=== PATIENT | female | born 1960 | race Caucasian/White ===

== ENCOUNTER 2022-02-22 19:06 | Observation (INO) | payer MEDICARE, SELFPAY ==
[2022-02-22 20:28] LABS: #Basophils 0.1 thou/uL (0.0-0.2); #Eosinphils 0.2 thou/uL (0.0-0.7); #Monocytes 0.7 thou/uL (0.11-0.59); #Neutrophils 5.3 thou/uL (1.40-6.50); %Basophils 0.7 % (0.0-1.0); %Lymphocytes 32.5 % (21.0-51.0); %Monocytes 7.6 % (0.0-10.0); %Neutrophils 57.3 % (42.0-75.0); Hemoglobin 13.7 g/dL (12.0-16.0); Mean Corpuscular HGB CONC 32.1 g/dL (32.0-36.0); Mean Corpuscular Hemoglobin 29.1 pg (27.0-31.0); Mean Corpuscular Volume 90.7 fL (78.0-98.0); Mean Platelet Volume 7.6 fL (7.4-10.4); Platelet Count 348 thou/uL (130-400); Red Blood Cell (RBC) Count 4.71 mill/uL (4.20-5.40); White Blood Cell (WBC) Count 9.3 thou/uL (4.8-10.8)
[2022-02-22] MEDS ORDERED: Labetalol HCl 100 MG/20 ML VIAL ONE (20:29)
[2022-02-22] MEDS ORDERED: Acetaminophen 325 MG TAB ONE (20:31)
[2022-02-22 21:13] LABS: ALT (SGPT) 12 U/L (8-55); AST (SGOT) 17 U/L (5-34); Albumin 4.1 g/dL (3.4-4.8); Alkaline Phosphatase 121 U/L (40-110); Anion Gap 15 mmol/L (10-20); BUN (Urea Nitrogen) 16 mg/dL (9.8-20.1); Bilirubin, Total 0.4 mg/dL (0.2-1.2); Calc. Creatinine Clearance 0 mL/min (70-130); Calcium 9.5 mg/dL (7.8-10.44); Carbon Dioxide 22 mmol/L (23-31); Chloride 104 mmol/L (98-107); Estimated GFR 89; Globulin 3.6 g/dL (2.4-3.5); Glucose 96 mg/dL (80-115); Potassium 3.9 mmol/L (3.5-5.1); Protein, Total 7.7 g/dL (5.8-8.1); Sodium 137 mmol/L (136-145)
[2022-02-22] MEDS ORDERED: Aspirin 325 MG TAB ONE (22:35)
[2022-02-22] MEDS ORDERED: rOPINIRole HCl 2 MG TAB PO SCH (23:00)
[2022-02-23] MEDS ORDERED: Gabapentin 300 MG CAP PO SCH ×2 (01:00→15:00)
[2022-02-23] MEDS ORDERED: rOPINIRole HCl 2 MG TAB PO SCH ×2 (01:00→15:00)
[2022-02-23 01:13] VITALS: BMI 32.6
[2022-02-23] MEDS ORDERED: Ondansetron PF 4 MG/2 ML Vial IVP PRN (03:16)
[2022-02-23] MEDS ORDERED: Acetaminophen 325 MG TAB PO PRN (03:16)
[2022-02-23] MEDS ORDERED: hydrALAZINE 20 MG/ML VIAL SLOW IVP PRN (03:44)
[2022-02-23 05:54] LABS: #Basophils 0.1 thou/uL (0.0-0.2); #Eosinphils 0.2 thou/uL (0.0-0.7); #Lymphocytes 3.1 thou/uL (1.20-3.40); #Monocytes 0.5 thou/uL (0.11-0.59); #Neutrophils 3.7 thou/uL (1.40-6.50); %Basophils 1.4 % (0.0-1.0); %Eosinophils 2.6 % (0.0-10.0); %Lymphocytes 40.9 % (21.0-51.0); %Monocytes 6.4 % (0.0-10.0); %Neutrophils 48.8 % (42.0-75.0); Hemoglobin 14.2 g/dL (12.0-16.0); Mean Corpuscular HGB CONC 31.7 g/dL (32.0-36.0); Mean Corpuscular Volume 91.4 fL (78.0-98.0); Mean Platelet Volume 7.7 fL (7.4-10.4); Platelet Count 329 thou/uL (130-400); Red Blood Cell (RBC) Count 4.91 mill/uL (4.20-5.40); White Blood Cell (WBC) Count 7.5 thou/uL (4.8-10.8)
[2022-02-23 06:13] LABS: Chloride 103 mmol/L (98-107); Potassium 3.2 mmol/L (3.5-5.1); Sodium 138 mmol/L (136-145)
[2022-02-23 06:14] LABS: Glucose 148 mg/dL (80-115)
[2022-02-23 06:15] LABS: Triglycerides 321 mg/dL (Less than 150)
[2022-02-23 06:16] LABS: Anion Gap 14 mmol/L (10-20); Carbon Dioxide 24 mmol/L (23-31)
[2022-02-23 06:18] LABS: BUN (Urea Nitrogen) 13 mg/dL (9.8-20.1); Calc. Creatinine Clearance 127 mL/min (70-130); Estimated GFR 94
[2022-02-23 06:20] LABS: Cardiac Risk 6.1 (Less than 4.5); Cholesterol 202 mg/dl (< 200 Desired); HDL Cholesterol 33 mg/dL (>60 Neg Risk); LDL Cholesterol, Calculated 105 mg/dL
[2022-02-23 06:30] LABS: Troponin I Less than 0.010 ng/mL (< 0.028)
[2022-02-23] MEDS ORDERED: Amlodipine 10 MG TAB PO SCH (09:00)
[2022-02-23] MEDS ORDERED: Aspirin Chewable 81 MG TAB PO SCH (09:00)
[2022-02-23] MEDS ORDERED: Enoxaparin Sodium 40 MG/0.4 ML SYRINGE SC SCH (09:00)
[2022-02-23 09:14] LABS: Troponin I Less than 0.010 ng/mL (< 0.028)
[2022-02-23] MEDS ORDERED: Lorazepam 1 MG TAB PO PRN (12:00)
[2022-02-23] MEDS ORDERED: HYDROcodone/Acetaminophen 10/325 mg Tablet PO PRN (12:27)
[2022-02-23 17:51] VITALS: BP 138/70; TEMP 98.9
[2022-02-23] MEDS ORDERED: Atorvastatin Calcium 40 MG TAB PO SCH (21:00)
[2022-02-23] MEDS ORDERED: tiZANidine HCl 4 MG TAB PO SCH (21:00)
[2022-02-24] MEDS ORDERED: DULoxetine 30 MG CAP PO SCH (09:00)
== END 2022-02-23 19:36 | disposition home or self-care (01) ==
LOC: ERS 19:06 → NEURO 22:30
PROVIDERS: ADMIT Internal Medicine; ATTEND Internal Medicine
DX: I16.0 Hypertensive urgency (principal); I10 Essential (primary) hypertension; R53.1 Weakness; G89.29 Other chronic pain; M54.50 Low back pain, unspecified; G25.81 Restless legs syndrome; E78.5 Hyperlipidemia, unspecified; E66.9 Obesity, unspecified; Z68.32 Body mass index [BMI] 32.0-32.9, adult; Z91.14 Patient's other noncompliance with medication regimen; Z79.899 Other long term (current) drug therapy; Z20.822 Contact with and (suspected) exposure to COVID-19
CPT/HCPCS: 70450; 80048; 80053; 80061; 83036; 84484 ×3; 85025 ×2; 93005; 96372; 96375; G0378 ×3; U0003; U0005; 36415; 96374; J1650; J2405

== ENCOUNTER 2022-03-03 10:41 | Outpatient (CLI) | payer MEDICARE | END 2022-03-03 10:42 | disposition home or self-care (01) | LOC: TBSIIMAG 10:41 | PROVIDERS: ATTEND Neurological Surgery | DX: M25.561 Pain in right knee (principal); M25.562 Pain in left knee ==

== ENCOUNTER 2022-06-13 21:14 | Emergency (ER) | payer MEDICARE ==
[2022-06-13 23:40] LABS: #Basophils 0.1 thou/uL (0.0-0.2); #Eosinphils 0.1 thou/uL (0.0-0.7); #Lymphocytes 3.5 thou/uL (1.20-3.40); #Monocytes 0.6 thou/uL (0.11-0.59); #Neutrophils 6.8 thou/uL (1.40-6.50); %Basophils 0.6 % (0.0-1.0); %Eosinophils 0.9 % (0.0-10.0); %Lymphocytes 31.7 % (21.0-51.0); %Monocytes 5.6 % (0.0-10.0); %Neutrophils 61.2 % (42.0-75.0); Hemoglobin 12.9 g/dL (12.0-16.0); Mean Corpuscular HGB CONC 32.7 g/dL (32.0-36.0); Mean Corpuscular Volume 91.8 fl (78.0-98.0); Mean Platelet Volume 7.6 fL (7.4-10.4); Platelet Count 382 10x3/uL (130-400); RBC Distribution Width 13.3 % (11.5-14.5); Red Blood Cell (RBC) Count 4.31 mill/uL (4.20-5.40); White Blood Cell (WBC) Count 11.1 10x3/uL (4.8-10.8)
[2022-06-13 23:56] LABS: ALT (SGPT) 11 U/L (8-55); AST (SGOT) 12 U/L (5-34); Alkaline Phosphatase 132 U/L (40-110); Anion Gap 13 mmol/L (10-20); BUN (Urea Nitrogen) 9 mg/dL (9.8-20.1); Bilirubin, Total 0.6 mg/dL (0.2-1.2); Calc. Creatinine Clearance 0 mL/min (70-130); Calcium 9.6 mg/dL (7.8-10.44); Carbon Dioxide 28 mmol/L (23-31); Chloride 105 mmol/L (98-107); Estimated GFR 97; Globulin 3.3 g/dL (2.4-3.5); Glucose 106 mg/dL (80-115); Potassium 4.7 mmol/L (3.5-5.1); Protein, Total 7.3 g/dL (5.8-8.1); Sodium 141 mmol/L (136-145)
[2022-06-14] MEDS ORDERED: Ketorolac Tromethamine 30 MG/ML VIAL ONE (00:32)
== END 2022-06-14 00:25 | disposition home or self-care (01) ==
LOC: ERS 21:14
DX: R60.9 Edema, unspecified (principal); D72.829 Elevated white blood cell count, unspecified; I10 Essential (primary) hypertension; E78.5 Hyperlipidemia, unspecified
CPT/HCPCS: 36415; 71045; 80053; 83880; 84484; 85025; 93970; 96372; J1885